=== PATIENT | male | born 1955 | race Caucasian/White ===

== ENCOUNTER 2020-07-01 16:09 | Inpatient (IN) | payer MEDICARE, BC ==
[~2020-07-01] VITALS: Ht 177.8 cm; Wt 101.9 kg
[2020-07-01] MEDS ORDERED: KLONOPIN1 MG PO (16:30)
[2020-07-01] MEDS ORDERED: FOLIC ACID1 MG PO (16:30)
[2020-07-01] MEDS ORDERED: XELJANZ5 MG PO (16:30)
[2020-07-01] MEDS ORDERED: TREXALL5 MG PO (16:31)
[2020-07-01] MEDS ORDERED: AMBIEN10 MG PO (16:31)
[2020-07-01] MEDS ORDERED: MELATONIN 3 MG1 TAB PO (16:31)
[2020-07-01] MEDS ORDERED: NEURONTIN 300300 MG PO (16:31)
[2020-07-01] MEDS ORDERED: FLOMAX0.4 MG PO (16:33)
[2020-07-01] MEDS ORDERED: ASPIRIN81 MG PO (16:33)
[2020-07-01 17:29] LABS: BASOPHILS 0.1 % (0-2); EOSINOPHILS 0 % (0-7); HEMATOCRIT 43.7 % (42.0-54.0); HEMOGLOBIN 14.6 g/dL (13.5-17.5); IMMATURE GRANULOCYTES 0.5 % (0-5); LYMPHOCYTES 4.1 % (15-50); MCH 31.6 pg (26.0-34.0); MCHC 33.4 g/dL (31.0-37.0); MCV 94.6 fL (80.0-100.0); MONOCYTES 10.6 % (2-11); NEUTROPHILS 84.7 % (40-80); PLATELET COUNT 169 10x3/uL (130-400); RBC 4.62 10x6/uL (4.20-6.10); RDW 14.1 % (11.5-14.5); WBC 12.2 10x3/uL (4.8-10.8)
[2020-07-01 18:12] LABS: ALBUMIN 3.3 g/dL (3.4-5.0); ANION GAP 11.1 mmol/L (8-16); BILIRUBIN - TOTAL 1.58 mg/dL (0.2-1.3); CALCIUM 8.6 mg/dL (8.5-10.1); CREATININE - SERUM 1.7 mg/dL (0.6-1.3); POTASSIUM - SERUM 4.1 mmol/L (3.5-5.1); PROTEIN - SERUM 6.8 g/dL (6.4-8.2)
--- NOTE | 2020-07-01 18:25 | NUR ---
PT TO MRI PRIOR TO GOING TO THE FLOOR. CALL TO FLOOR TO LET ABRIL GERMAN KNOW.
[2020-07-01 18:29] LABS: C-REACTIVE PROTEIN 27.3 mg/dL (0.0-0.9)
[2020-07-01 18:45] LABS: ERYTHROCYTE SEDIMENTATION RATE 28 mm/hr (0-20)
[2020-07-01 20:16] VITALS: BP 101/63
[2020-07-02 04:00] VITALS: BP 92/56
[2020-07-02 06:21] LABS: BASOPHILS 0.1 % (0-2); EOSINOPHILS 0 % (0-7); HEMOGLOBIN 13.1 g/dL (13.5-17.5); IMMATURE GRANULOCYTES 0.2 % (0-5); LYMPHOCYTES 4.9 % (15-50); MCHC 33.6 g/dL (31.0-37.0); MCV 95.1 fL (80.0-100.0); MEAN PLATELET VOLUME 10.4 fL (7.4-10.4); MONOCYTES 10.9 % (2-11); NEUTROPHILS 83.9 % (40-80); PLATELET COUNT 159 10x3/uL (130-400); RDW 14.3 % (11.5-14.5); WBC 12.9 10x3/uL (4.8-10.8)
[2020-07-02 06:50] LABS: ALBUMIN 2.7 g/dL (3.4-5.0); ANION GAP 15.2 mmol/L (8-16); BILIRUBIN - TOTAL 1.38 mg/dL (0.2-1.3); CALCIUM 7.5 mg/dL (8.5-10.1); CARBON DIOXIDE 23.4 mmol/L (21.0-32.0); CREATININE - SERUM 1.7 mg/dL (0.6-1.3); POTASSIUM - SERUM 3.6 mmol/L (3.5-5.1); PROTEIN - SERUM 5.2 g/dL (6.4-8.2); VANCOMYCIN - RANDOM 7.5 ug/mL (10.0-20.0)
--- NOTE | 2020-07-02 07:45 | OP ---
PATIENT NAME: DON ALMARAZ MEDICAL RECORD: [id number] :59 LOCATION:[id number] ADMISSION DATE:07/01/20 SURGEON: CORA RODAS DO DATE OF OPERATION: 07/01/2020 PROCEDURE PERFORMED: Right knee aspiration. PREOPERATIVE DIAGNOSIS: Right knee infection. POSTOPERATIVE DIAGNOSIS: Right knee infection. INDICATIONS: Mr. Don Almaraz is a 64-year-old male who has had right knee pain and swelling for the last 4 days, it has gotten worse. She had a fever of 102 today. She is unable to bear weight on it and it was painful to move. I saw him in the ER and it was quite swollen. I told him that we need to aspirate it and given a white count of 12, I needed to aspirate to ensure there is no infection and then sent it for culture, did that and he was okay with that. I then prepped him by using Betadine in the lateral aspect of the knee inserted an 18-gauge needle in the knee and aspirated approximately 2.5 to 3 mL of straw-colored fluid, a gram recovered of fluid. It was not frankly purulent from the knee joint, but it was a joint fluid and then removed the needle and placed a Band-Aid over that site and sent the fluid for culture. He tolerated the procedure well. He will be admitted and started on IV antibiotics. We will keep a close eye on that. If they do become positive, we will plan I&D with the scope. TRANSINT:[id number] Voice Confirmation ID: [id number] DOCUMENT ID: [id number] CORA RODAS DO at 0745 CC: [id number] DICTATION DATE: 07/01/20 1759 FORM BUILDING SUPERVISOR: 07/01/202205 ADM IN [facility] [address] [place] [address]
[2020-07-02 08:37] VITALS: BP 89/60
[2020-07-02 12:00] VITALS: BP 104/62
[2020-07-02 14:09] VITALS: Ht 177.8 cm; Wt 101.9 kg
[2020-07-02 16:00] VITALS: BP 94/50
[2020-07-02 17:12] VITALS: BP 126/62
[2020-07-02 20:55] VITALS: BP 81/41
[2020-07-03 01:48] VITALS: BP 99/58
--- NOTE | 2020-07-03 02:56 | NUR ---
I have reviewed this patient and I concur with the Shift Assessment completed by the Licensed Practical Nurse today this shift.
[2020-07-03 04:30] VITALS: BP 98/60
[2020-07-03 06:30] LABS: BASOPHILS 0.1 % (0-2); EOSINOPHILS 0.3 % (0-7); HEMATOCRIT 36.8 % (42.0-54.0); HEMOGLOBIN 11.9 g/dL (13.5-17.5); IMMATURE GRANULOCYTES 0.3 % (0-5); LYMPHOCYTES 5.9 % (15-50); MCH 30.9 pg (26.0-34.0); MCHC 32.3 g/dL (31.0-37.0); MCV 95.6 fL (80.0-100.0); MEAN PLATELET VOLUME 10.6 fL (7.4-10.4); MONOCYTES 9.8 % (2-11); NEUTROPHILS 83.6 % (40-80); PLATELET COUNT 158 10x3/uL (130-400); RBC 3.85 10x6/uL (4.20-6.10); RDW 14.4 % (11.5-14.5); WBC 11.8 10x3/uL (4.8-10.8)
--- NOTE | 2020-07-03 07:34 | NUR ---
ALERT AND ORIENTED. LUNGS CLEAR BILATERALLY. HEART SOUNDS S1 AND S2 HEARD IN ALL SANTANA. BOWEL SOUNDS ACTIVE X 4. IV TO LEFT AC PATENT WITHOUT REDNESS. DENIES NEEDS. BED LOW. CALL BARRETT AND PERSONAL ITEMS IN REACH. WILL CONTINUE TO MONITOR.
[2020-07-03 07:54] LABS: ALBUMIN 2.2 g/dL (3.4-5.0); ANION GAP 13.4 mmol/L (8-16); BILIRUBIN - TOTAL 0.91 mg/dL (0.2-1.3); CARBON DIOXIDE 22.5 mmol/L (21.0-32.0); CREATININE - SERUM 1.6 mg/dL (0.6-1.3); POTASSIUM - SERUM 3.9 mmol/L (3.5-5.1); PROTEIN - SERUM 4.9 g/dL (6.4-8.2)
[2020-07-03 08:00] VITALS: BP 106/67
--- NOTE | 2020-07-03 11:29 | NUR ---
HANNAH Kalyani OFFERED PATIENT A BATH AND TO HELP WITH ORAL CARE AND OTHER ADLS AT THIS TIME. PATIENT REFUSED AND STATED HE WAS WAITING FOR HIS TO GET HERE. CALL LIGHT WITHIN REACH.
[2020-07-03 12:00] VITALS: BP 96/61
[2020-07-03 13:40] LABS: BILIRUBIN NEGATIVE (NEGATIVE); KETONE NEGATIVE (NEGATIVE); NITRITE NEGATIVE (NEGATIVE); UROBILINOGEN NORMAL (NORMAL)
[2020-07-03 16:00] VITALS: BP 98/63
--- NOTE | 2020-07-03 16:51 | NUR ---
PATIENT REQUESTING PO PAIN MEDICATION INSTEAD OF MORPHINE IV. CLINICAL INFORMATICS SPEC PAGED.
[2020-07-03 20:00] VITALS: BP 94/58
--- NOTE | 2020-07-04 01:45 | NUR ---
I have reviewed this patient and I concur with the Shift Assessment completed by the Licensed Practical Nurse today this shift.
[2020-07-04 04:00] VITALS: BP 100/65
[2020-07-04 06:13] LABS: BASOPHILS 0.2 % (0-2); EOSINOPHILS 1.2 % (0-7); HEMATOCRIT 35.6 % (42.0-54.0); HEMOGLOBIN 11.6 g/dL (13.5-17.5); IMMATURE GRANULOCYTES 0.4 % (0-5); LYMPHOCYTES 7.6 % (15-50); MCH 30.9 pg (26.0-34.0); MCHC 32.6 g/dL (31.0-37.0); MCV 94.7 fL (80.0-100.0); MEAN PLATELET VOLUME 10.3 fL (7.4-10.4); MONOCYTES 8.8 % (2-11); NEUTROPHILS 81.8 % (40-80); PLATELET COUNT 188 10x3/uL (130-400); RBC 3.76 10x6/uL (4.20-6.10); RDW 14.3 % (11.5-14.5); WBC 9.6 10x3/uL (4.8-10.8)
[2020-07-04 06:32] LABS: ALBUMIN 1.9 g/dL (3.4-5.0); ANION GAP 10.3 mmol/L (8-16); BILIRUBIN - TOTAL 0.71 mg/dL (0.2-1.3); CALCIUM 7.4 mg/dL (8.5-10.1); CARBON DIOXIDE 26.2 mmol/L (21.0-32.0); CREATININE - SERUM 1.3 mg/dL (0.6-1.3); POTASSIUM - SERUM 3.5 mmol/L (3.5-5.1); PROTEIN - SERUM 5.6 g/dL (6.4-8.2)
[2020-07-04 08:46] VITALS: BP 120/75
--- NOTE | 2020-07-04 09:10 | NUR ---
RESTING IN BED, NO DISTRESS NOTED, IV INFUSING, CONT TO MONITOR PAIN AND LEG EDEMA
[2020-07-04 12:17] VITALS: BP 107/67
[2020-07-04 16:53] VITALS: BP 114/74
[2020-07-04 20:00] VITALS: BP 84/54
[2020-07-05 04:00] VITALS: BP 119/80
--- NOTE | 2020-07-05 05:21 | NUR ---
I have reviewed this patient and I concur with the Shift Assessment completed by the Licensed Practical Nurse today this shift.
[2020-07-05 07:05] LABS: BASOPHILS 0.2 % (0-2); EOSINOPHILS 1.9 % (0-7); HEMATOCRIT 34.6 % (42.0-54.0); HEMOGLOBIN 11.5 g/dL (13.5-17.5); IMMATURE GRANULOCYTES 0.8 % (0-5); LYMPHOCYTES 7.1 % (15-50); MCH 31.4 pg (26.0-34.0); MCHC 33.2 g/dL (31.0-37.0); MCV 94.5 fL (80.0-100.0); MEAN PLATELET VOLUME 9.8 fL (7.4-10.4); MONOCYTES 11.2 % (2-11); NEUTROPHILS 78.8 % (40-80); PLATELET COUNT 215 10x3/uL (130-400); RBC 3.66 10x6/uL (4.20-6.10); RDW 14.2 % (11.5-14.5)
[2020-07-05 07:07] LABS: ALBUMIN 2.2 g/dL (3.4-5.0); ANION GAP 12.1 mmol/L (8-16); BILIRUBIN - TOTAL 0.86 mg/dL (0.2-1.3); CALCIUM 8.3 mg/dL (8.5-10.1); CARBON DIOXIDE 25.3 mmol/L (21.0-32.0); CREATININE - SERUM 1.5 mg/dL (0.6-1.3); POTASSIUM - SERUM 3.4 mmol/L (3.5-5.1); PROTEIN - SERUM 6.2 g/dL (6.4-8.2)
--- NOTE | 2020-07-05 09:39 | NUR ---
HIS RIGHT KNEE IS SWOLLEN AND IS RED. HIS RIGHT LEG IS ELEVATED ON A PILLOW. THE CALL LIGHT IS WITHIN REACH.
[2020-07-05 09:48] VITALS: BP 96/72
--- NOTE | 2020-07-05 12:02 | NUR ---
NEW IV STARTED TO THE UPPER RIGHT ARM. THE CALL LIGHT IS WITHIN REACH. HIS IS AT THE BEDSIDE.
--- NOTE | 2020-07-05 12:31 | NUR ---
Nutrition follow-up: Pt receiving a regular diet with po intake 100% of meals Labs reviewed Wt: 224# RDN following.
[2020-07-05 12:58] VITALS: BP 102/61
[2020-07-05 17:23] VITALS: BP 95/55
[2020-07-05 20:00] VITALS: BP 102/56
[2020-07-06] VITALS: BP 94/45
[2020-07-06 04:00] VITALS: BP 112/65
[2020-07-06 04:42] LABS: BASOPHILS 0.4 % (0-2); HEMATOCRIT 33.9 % (42.0-54.0); HEMOGLOBIN 11.1 g/dL (13.5-17.5); IMMATURE GRANULOCYTES 2.6 % (0-5); LYMPHOCYTES 10.9 % (15-50); MCH 31.1 pg (26.0-34.0); MCHC 32.7 g/dL (31.0-37.0); MEAN PLATELET VOLUME 9.6 fL (7.4-10.4); MONOCYTES 11.3 % (2-11); NEUTROPHILS 72.8 % (40-80); PLATELET COUNT 221 10x3/uL (130-400); RBC 3.57 10x6/uL (4.20-6.10); RDW 14.4 % (11.5-14.5); WBC 7.6 10x3/uL (4.8-10.8)
[2020-07-06 05:10] LABS: ANION GAP 10.6 mmol/L (8-16); BILIRUBIN - TOTAL 0.5 mg/dL (0.2-1.3); CALCIUM 7.9 mg/dL (8.5-10.1); CARBON DIOXIDE 27.8 mmol/L (21.0-32.0); CREATININE - SERUM 1.6 mg/dL (0.6-1.3); POTASSIUM - SERUM 3.4 mmol/L (3.5-5.1); PROTEIN - SERUM 5.5 g/dL (6.4-8.2)
--- NOTE | 2020-07-06 07:42 | NUR ---
RECEIVED PT FROM WELL SITE DRILLING ENGINEER. RESTING COMFORTABLY IN BED UPON ENTERING. DENIES ANY NEEDS. BED IN LOWEST POSITION, BED RAILS X2, CALL LIGHT WITHIN REACH. WILL CONTINUE TO MONITOR.
--- NOTE | 2020-07-06 09:15 | NUR ---
PT ALERT AND ORIENTED X4 UPON ENTERING. ADMINISTERED MEDICATION AT THIS TIME. NO DIFFICULTIES. RESTING COMFORTABLY IN BED. DENIES ANY NEEDS. WILL CONTINUE TO MONITOR.
[2020-07-06 09:17] VITALS: BP 129/70
--- NOTE | 2020-07-06 12:24 | NUR ---
HUNG IV ABX, TOLERATING WELL. PRN PERCOCET FOR 10/10 PAIN IN RIGHT KNEE/LOWER LEG. RESTING COMFORTABLY, FAMILY AT BEDSIDE. DENIES ANY NEEDS. WILL CONTINUE TO MONITOR.
[2020-07-06 12:53] VITALS: BP 125/67
--- NOTE | 2020-07-06 15:19 | NUR ---
I have reviewed this patient and I concur with the Shift Assessment completed by the Licensed Practical Nurse today this shift.
--- NOTE | 2020-07-06 16:36 | NUR ---
ADMINSTERED MEDICATION AND HUNG IV ABX. RESTING COMFORTABLY IN BED. DENIES ANY NEEDS. WILL CONTINUE TO MONITOR.
[2020-07-06 17:11] VITALS: BP 94/60
--- NOTE | 2020-07-06 18:53 | NUR ---
ADMINISTERED PRN PERCOCET FOR PAIN 10/10 IN RIGHT KNEE/LOWER LEG. RESTING COMFORTABLY OTHERWISE. DENIES ANY NEEDS. WILL CONTINUE TO MONITOR.
--- NOTE | 2020-07-06 21:30 | NUR ---
PT C/O RIGHT LEG PAIN EXCRUCIATING 08/25. CALLED COLETTE OLIVA. RECEIVED ORDER CHANGING TO FROM PERCOCET-5 1 TAB Q4HP TO PERCOCET-10 1 TAB Q6HP. GAVE PT 1 TAB PERCOCET-10 NOW ORDERED AND OTHER SCHEDULED MEDS. NO OTHER NEEDS. WILL REASSESS AND CONTINUE TO MONITOR.
[2020-07-07 04:00] VITALS: BP 120/73
[2020-07-07 06:18] LABS: BASOPHILS 0.4 % (0-2); EOSINOPHILS 2.4 % (0-7); HEMATOCRIT 36.4 % (42.0-54.0); HEMOGLOBIN 11.9 g/dL (13.5-17.5); IMMATURE GRANULOCYTES 4.9 % (0-5); LYMPHOCYTES 10.1 % (15-50); MCH 31.3 pg (26.0-34.0); MCHC 32.7 g/dL (31.0-37.0); MCV 95.8 fL (80.0-100.0); MEAN PLATELET VOLUME 9.8 fL (7.4-10.4); MONOCYTES 14.2 % (2-11); PLATELET COUNT 255 10x3/uL (130-400); RDW 14.8 % (11.5-14.5); WBC 7.2 10x3/uL (4.8-10.8)
[2020-07-07 09:30] VITALS: BP 131/83
[2020-07-07 09:59] LABS: ALBUMIN 2.3 g/dL (3.4-5.0); BILIRUBIN - TOTAL 0.51 mg/dL (0.2-1.3); CALCIUM 7.9 mg/dL (8.5-10.1); CREATININE - SERUM 1.4 mg/dL (0.6-1.3); PROTEIN - SERUM 5.2 g/dL (6.4-8.2)
[2020-07-07 10:00] LABS: ANION GAP 14.1 mmol/L (8-16); POTASSIUM - SERUM 4.1 mmol/L (3.5-5.1)
[2020-07-07 13:23] VITALS: BP 106/51
[2020-07-07 16:23] VITALS: BP 124/89
[2020-07-07 20:00] VITALS: BP 127/64
[2020-07-08 04:30] VITALS: BP 111/65
[2020-07-08 06:16] LABS: BASOPHILS 0.5 % (0-2); EOSINOPHILS 2.6 % (0-7); HEMATOCRIT 37.6 % (42.0-54.0); HEMOGLOBIN 12.2 g/dL (13.5-17.5); IMMATURE GRANULOCYTES 4.6 % (0-5); LYMPHOCYTES 11.8 % (15-50); MCHC 32.4 g/dL (31.0-37.0); MCV 95.4 fL (80.0-100.0); MEAN PLATELET VOLUME 9.6 fL (7.4-10.4); MONOCYTES 8.9 % (2-11); NEUTROPHILS 71.6 % (40-80); PLATELET COUNT 289 10x3/uL (130-400); RBC 3.94 10x6/uL (4.20-6.10); RDW 14.6 % (11.5-14.5); WBC 7.4 10x3/uL (4.8-10.8)
[2020-07-08 06:39] LABS: ALBUMIN 2.3 g/dL (3.4-5.0); ANION GAP 9.7 mmol/L (8-16); BILIRUBIN - TOTAL 0.5 mg/dL (0.2-1.3); CARBON DIOXIDE 27.7 mmol/L (21.0-32.0); CREATININE - SERUM 1.4 mg/dL (0.6-1.3); POTASSIUM - SERUM 4.4 mmol/L (3.5-5.1); PROTEIN - SERUM 5.4 g/dL (6.4-8.2)
[2020-07-08 09:49] VITALS: BP 106/65
--- NOTE | 2020-07-08 11:38 | NUR ---
PT ALERT X 4. BREATH SOUNDS DIMINISHED TO RIGHT LOWER LOBE. IV TO RIGHT UPPER ARM, PATENT, DRESSING CDI. RAS TO RIGHT KNEE CDI. PT REPORTING PAIN OF 2/10, WILL CONTINUE TO MONITOR. AT BEDSIDE. BED LOW, CALL LIGHT IN REACH. NO OTHER NEEDS AT THIS TIME.
[2020-07-08 12:15] VITALS: BP 110/66
[2020-07-08 17:21] VITALS: BP 117/69
[2020-07-08 20:00] VITALS: BP 117/71
[2020-07-09 00:05] VITALS: BP 117/71
[2020-07-09 04:30] VITALS: BP 124/73
[2020-07-09 05:16] LABS: BASOPHILS 0.2 % (0-2); EOSINOPHILS 1.7 % (0-7); HEMATOCRIT 40.8 % (42.0-54.0); IMMATURE GRANULOCYTES 4.6 % (0-5); LYMPHOCYTES 9.5 % (15-50); MCH 30.8 pg (26.0-34.0); MCHC 31.9 g/dL (31.0-37.0); MCV 96.7 fL (80.0-100.0); MEAN PLATELET VOLUME 9.7 fL (7.4-10.4); MONOCYTES 6.9 % (2-11); NEUTROPHILS 77.1 % (40-80); RBC 4.22 10x6/uL (4.20-6.10); RDW 14.5 % (11.5-14.5); WBC 8.2 10x3/uL (4.8-10.8)
[2020-07-09 05:28] LABS: PLATELET COUNT 363 10x3/uL (130-400)
[2020-07-09 05:57] LABS: ALBUMIN 2.5 g/dL (3.4-5.0); BILIRUBIN - TOTAL 0.57 mg/dL (0.2-1.3); CALCIUM 8.6 mg/dL (8.5-10.1); CARBON DIOXIDE 26.6 mmol/L (21.0-32.0); CREATININE - SERUM 1.5 mg/dL (0.6-1.3); VANCOMYCIN - RANDOM 26.4 ug/mL (10.0-20.0)
[2020-07-09 05:59] LABS: POTASSIUM - SERUM 3.6 mmol/L (3.5-5.1)
--- NOTE | 2020-07-09 08:12 | NUR ---
AWAKE AND ALERT. ORIENTED X3. NO C/O AT THIS TIME. LUNGS ARE CLEAR BILATERALLY, NO COUGH NOTED. SKIN IS INTACT WITHOUT REDNESS EXCEPT REDNESS AND WARMTH TO RIGHT KNEE AREA. PATIENT REPORTS THIS IS IMPROVED. IV TO RIGHT UPPER ARM IS PATENT WITHOUT REDNESS AT INSERTION SITE. DENIES NEEDS.
[2020-07-09 08:44] VITALS: BP 117/70
--- NOTE | 2020-07-09 10:00 | NUR ---
UP TO BR PER SELF. REPORTED GOOD STOOL. REFUSED MIRALAX AT THIS TIME.
[2020-07-09] MEDS ORDERED: Zosyn 3.375 GM/D5W 5 IV (10:16)
[2020-07-09] MEDS ORDERED: VANCOMYCIN 1 GM/1 G1 IV (10:18)
--- NOTE | 2020-07-09 12:57 | NUR ---
LUNCH SERVED IN ROOM. ANXIOUS TO GO HOME.
[2020-07-09 13:30] VITALS: BP 113/70
--- NOTE | 2020-07-09 15:34 | MORECARE ---
CASE MANAGEMENT DISCHARGE SUMMARY PATIENT: CONSTANTIN HARTMAN UNIT: [id number] ADM DATE: 07/01/20 AGE: 64 : 59 SEX: M ROOM/BED: D.2203 AUTHOR: DAVY HERRING PHYSICIAN: REFERRING PHYSICIAN: ROXANNE JIM DO DATE OF SERVICE: 07/09/20 Discharge Plan Patient Name: CONSTANTIN HARTMAN Facility: [facility]:[place] : 1955 Planned Disposition: Home with Infusion Therapy Services Anticipated Discharge Date: Discharge Date: Expected LOS: Initial Reviewer: [id number] Initial Review Date: 07/01/2020 Generated: 07/09/20 4:33 pm Comments DCP- Discharge Planning Updated by [email or web address]: Sweta Mina on 07/09/20 2:[address] Patient Name: CONSTANTIN HARTMAN Admission Status: ER Accout number: [id number] Admission Date: 07-01-2020 : 1955 Admission Diagnosis:PAIN IN RIGHT KNEE Attending: ROXANNE JIM Current LOS: 8 Anticipated DC Date: Planned Disposition: Home with Infusion Therapy Services Primary Insurance: MEDICARE A & B Discharge Planning Comments: I HAVE BEEN WORKING ON IV ABX. MARCO SOTO WILL SUPPLY HER IV ABX. HE HAS NO COVERAGE OUT OF STATE FROM [facility]. HIS OUT OF POCKET EXPENSE IS 1000.85 FOR DRUGS AND SUPPLIES. THE FAMILY IS OK WITH THIS AND WILL BE PAYING FOR THIS. HE WILL HAVE CARE IV HOME HEALTH HE WILL BE GOING TO [address] [place] [address] IN [place]. HIS IS AT BEDSIDE AND EILL BE DRIVEING HIM HOME. MARCO SOTO WILL TEACHA ND DELIVER TO THE HOSPITAL TODAY AND THEY WILL DISCHARGE HOME TO THEIR FRIENDS HOME WHILE HE RECOVERS IMM SERVED AND EXPLAINED AND MARIA ALSO SIGNED. I HAVE GIVEN THEM MY CARD IF THERE ARE ANY PROBLEMS CM TO FOLLOW AND ASSIST NEEDED Dialysis Clinical Manager: Sweta Mina DCPIA - Discharge Planning Initial Assessment Updated by [id number]: Sweta Mina on 07/09/20 3:28 pm * Is the patient Alert and Oriented? Yes External Providers External Provider: [facility] Next Contact Date: Service Request Date: Service Type: Resolution: Reviewer: Comments: External Provider: [facility] Next Contact Date: Service Request Date: Service Type: Resolution: Reviewer: Comments: Coverage Notice Reviewer: [email or web address] Mina Notice Issued Date-Time: 07/09/2020 15:32 Notice Type: IM Discharge Notice Notice Delivered To: Patient Relationship to Patient: Carbon Furnace Operator Helper Name: Delivery Method: HAND - Hand Delivered Rima Days: Prior Verbal Notification: Recipient Understood Notice: Yes Recipient Signature: Yes Med Rec Note Co-signed by Attending: Coverage Notice Comment: Reviewer: [id number] Mina Notice Issued Date-Time: 07/09/2020 15:32 Notice Type: Patient Choice Letter Notice Delivered To: Patient Relationship to Patient: Carbon Furnace Operator Helper Name: Delivery Method: HAND - Hand Delivered Rima Days: Prior Verbal Notification: Recipient Understood Notice: Yes Recipient Signature: Yes Med Rec Note Co-signed by Attending: Coverage Notice Comment: Patient Name: CONSTANTIN HARTMAN Page [phone] at 1534 All edits/amendments must be made on the electronic document DICTATION DATE: 07/09/20 1533 SECURITY AND COMPLIANCE PROJECT MANAGER: ZAINAB 07/09/20 1533 RPT#: [id number] DC DATE: STATUS: ADM IN [facility] [address] [place] [address] END OF REPORT
--- NOTE | 2020-07-09 15:43 | MORECARE ---
CASE MANAGEMENT DISCHARGE SUMMARY PATIENT: CONSTANTIN HARTMAN UNIT: [id number] ADM DATE: 07/01/20 AGE: 64 : 59 SEX: M ROOM/BED: D.2203 AUTHOR: DAVY HERRING PHYSICIAN: REFERRING PHYSICIAN: ROXANNE JIM DO DATE OF SERVICE: 07/09/20 Discharge Plan Patient Name: CONSTANTIN HARTMAN Facility: [facility]:[place] : 1955 Planned Disposition: Home with Infusion Therapy Services Anticipated Discharge Date: Discharge Date: Expected LOS: Initial Reviewer: [id number] Initial Review Date: 07/01/2020 Generated: 07/09/20 4:42 pm Comments DCP- Discharge Planning Updated by [email or web address]: Sweta Mina on 07/09/20 2:[address] Patient Name: CONSTANTIN HARTMAN Admission Status: ER Accout number: [id number] Admission Date: 07-01-2020 : 1955 Admission Diagnosis:PAIN IN RIGHT KNEE Attending: ROXANNE JIM Current LOS: 8 Anticipated DC Date: Planned Disposition: Home with Infusion Therapy Services Primary Insurance: MEDICARE A & B Discharge Planning Comments: I HAVE BEEN WORKING ON IV ABX. MARCO SOTO WILL SUPPLY HER IV ABX. HE HAS NO COVERAGE OUT OF STATE FROM [facility]. HIS OUT OF POCKET EXPENSE IS 1000.85 FOR DRUGS AND SUPPLIES. THE FAMILY IS OK WITH THIS AND WILL BE PAYING FOR THIS. HE WILL HAVE CARE IV HOME HEALTH HE WILL BE GOING TO [address] [place] [address] IN [place]. HIS IS AT BEDSIDE AND EILL BE DRIVEING HIM HOME. MARCO SOTO WILL TEACHA ND DELIVER TO THE HOSPITAL TODAY AND THEY WILL DISCHARGE HOME TO THEIR FRIENDS HOME WHILE HE RECOVERS IMM SERVED AND EXPLAINED AND MARIA ALSO SIGNED. I HAVE GIVEN THEM MY CARD IF THERE ARE ANY PROBLEMS CM TO FOLLOW AND ASSIST NEEDED Traffic Worker: Sweta Mina DCPIA - Discharge Planning Initial Assessment Updated by [id number]: Sweta Mina on 07/09/20 3:28 pm * Is the patient Alert and Oriented? Yes External Providers [facility] Next Contact Date: Service Request Date: Service Type: Resolution: Reviewer: Comments: Coverage Notice Reviewer: [id number] Jillian Mina Notice Issued Date-Time: 07/09/2020 15:32 Notice Type: IM Discharge Notice Notice Delivered To: Patient Relationship to Patient: Kiln Furniture Caster Name: Delivery Method: HAND - Hand Delivered Rima Days: Prior Verbal Notification: Recipient Understood Notice: Yes Recipient Signature: Yes Med Rec Note Co-signed by Attending: Coverage Notice Comment: Reviewer: [id number] Jillian Mina Notice Issued Date-Time: 07/09/2020 15:32 Notice Type: Patient Choice Letter Notice Delivered To: Patient Relationship to Patient: Kiln Furniture Caster Name: Delivery Method: HAND - Hand Delivered Rima Days: Prior Verbal Notification: Recipient Understood Notice: Yes Recipient Signature: Yes Med Rec Note Co-signed by Attending: Coverage Notice Comment: Last DP export: 07/09/20 2:34 p Patient Name: CONSTANTIN HARTMAN Page [id number] at 1543 All edits/amendments must be made on the electronic document DICTATION DATE: 07/09/20 1543 RN CLINICAL: ZAINAB 07/09/20 1543 RPT#: [id number] DC DATE: STATUS: ADM IN [facility] [address] [place] [address] END OF REPORT
--- NOTE | 2020-07-09 16:45 | NUR ---
DISCHARGED TO HOME AMBULATORY WITH . DISCHARGE INSTRUCTIONS GIVEN BOTH VERBALLY AND WRITTEN. ALL QUESTIONS ANSWERED. PATIENT AND VERBALIZED UNDERSTANDING OF MEDICATION INSTRUCTIONS FROM BARRY. SL TO RIGHT UPPER ARM D/C WITH CATHETER INTACT. ALL BELONGINGS WITH PATIENT. NO NEW MEDS NEEDED.
--- NOTE | 2020-07-10 07:25 | MORECARE ---
CASE MANAGEMENT DISCHARGE SUMMARY PATIENT: CONSTANTIN HARTMAN UNIT: [id number] ADM DATE: 07/01/20 AGE: 64 : 59 SEX: M ROOM/BED: D.2203 AUTHOR: NIMA,DOC PHYSICIAN: REFERRING PHYSICIAN: ROXANNE JIM DO DATE OF SERVICE: 07/10/20 Discharge Plan Patient Name: CONSTANTIN HARTMAN Facility: [facility]:[place] : 1955 Planned Disposition: Home with Infusion Therapy Services Anticipated Discharge Date: Discharge Date: 07/09/2020 Expected LOS: Initial Reviewer: [id number] Initial Review Date: 07/01/2020 Generated: 07/10/20 8:24 am Comments DCP- Discharge Planning Updated by [email or web address]: Sweta Mina on 07/10/20 6:[address] late entry 07/09/20 @ 1555- care iv called and stated that their insurance is flagged and Medicare is not their primary The family states that Medicare is their Primary and they have it wrong. Care IV can not accept until they can get auth from [employer]. I have explained this to the family and they are not worried about home health, they just would like to get the IV abx and get out of here. I have sent the referral to [facility] for them to work on this and gave the family my card and will touch base with them Tuesday 07/10 DCP- Discharge Planning Updated by [id number]: Sweta Mina on 07/09/20 2:[address] Patient Name: CONSTANTIN HARTMAN Admission Status: ER Accout number: [id number] Admission Date: 07-01-2020 : 1955 Admission Diagnosis:PAIN IN RIGHT KNEE Attending: ROXANNE JIM Current LOS: 8 Anticipated DC Date: Planned Disposition: Home with Infusion Therapy Services Primary Insurance: MEDICARE A & B Discharge Planning Comments: I HAVE BEEN WORKING ON IV ABX. MARCO SOTO WILL SUPPLY HER IV ABX. HE HAS NO COVERAGE OUT OF STATE FROM [employer] HIS OUT OF POCKET EXPENSE IS 1000.85 FOR DRUGS AND SUPPLIES. THE FAMILY IS OK WITH THIS AND WILL BE PAYING FOR THIS. HE WILL HAVE CARE IV HOME HEALTH HE WILL BE GOING TO [address] [place] [address] IN [place]. HIS IS AT BEDSIDE AND EILL BE DRIVEING HIM HOME. MARCO SOTO WILL TEACHA ND DELIVER TO THE HOSPITAL TODAY AND THEY WILL DISCHARGE HOME TO THEIR FRIENDS HOME WHILE HE RECOVERS IMM SERVED AND EXPLAINED AND MARIA ALSO SIGNED. I HAVE GIVEN THEM MY CARD IF THERE ARE ANY PROBLEMS CM TO FOLLOW AND ASSIST NEEDED Disk Operator: Sweta Mina DCPIA - Discharge Planning Initial Assessment Updated by [id number]: Sweta Mian on 07/09/20 3:28 pm * Is the patient Alert and Oriented? Yes Coverage Notice Reviewer: [id number] Mina Notice Issued Date-Time: 07/09/2020 15:32 Notice Type: IM Discharge Notice Notice Delivered To: Patient Relationship to Patient: Engineering Drawings Checker Name: Delivery Method: HAND - Hand Delivered Rima Days: Prior Verbal Notification: Recipient Understood Notice: Yes Recipient Signature: Yes Med Rec Note Co-signed by Attending: Coverage Notice Comment: Reviewer: [id number] Mina Notice Issued Date-Time: 07/09/2020 15:32 Notice Type: Patient Choice Letter Notice Delivered To: Patient Relationship to Patient: Engineering Drawings Checker Name: Delivery Method: HAND - Hand Delivered Rima Days: Prior Verbal Notification: Recipient Understood Notice: Yes Recipient Signature: Yes Med Rec Note Co-signed by Attending: Coverage Notice Comment: Last DP export: 07/09/20 2:43 p Patient Name: CONSTANTIN HARTMAN Page [phone] at 0725 All edits/amendments must be made on the electronic document DICTATION DATE: 07/10/20723 AFTER SCHOOL PROGRAM COORDINATOR: ZAINAB 07/10/20723 RPT#: [id number] DC DATE:07/09/20 STATUS: DIS IN [facility] [address] [place] [address] END OF REPORT
--- NOTE | 2020-07-10 08:45 | MORECARE ---
CASE MANAGEMENT DISCHARGE SUMMARY PATIENT: CONSTANTIN HARTMAN UNIT: [id number] ADM DATE: 07/01/20 AGE: 64 : 59 SEX: M ROOM/BED: D.2203 AUTHOR: NIMA,DOC PHYSICIAN: REFERRING PHYSICIAN: ROXANNE JIM DO DATE OF SERVICE: 07/10/20 Discharge Plan Patient Name: CONSTANTIN HARTMAN Facility: [facility]:[place] : 1955 Planned Disposition: Home with Infusion Therapy Services Anticipated Discharge Date: Discharge Date: 07/09/2020 Expected LOS: Initial Reviewer: [email or web address] Initial Review Date: 07/01/2020 Generated: 07/10/20 9:44 am Comments DCP- Discharge Planning Updated by [email or web address]: Sweta Mina on 07/10/20 6:[address] late entry 07/09/20 @ 1555- care iv called and stated that their insurance is flagged and Medicare is not their primary The family states that Medicare is their Primary and they have it wrong. Care IV can not accept until they can get auth from [employer]. I have explained this to the family and they are not worried about home health, they just would like to get the IV abx and get out of here. I have sent the referral to [facility] for them to work on this and gave the family my card and will touch base with them Tuesday 07/10 DCP- Discharge Planning Updated by [email or web address]: Sweta Mina on 07/09/20 2:[address] Patient Name: CONSTANTIN HARTMAN Admission Status: ER Accout number: [id number] Admission Date: 07-01-2020 : 1955 Admission Diagnosis:PAIN IN RIGHT KNEE Attending: ROXANNE JIM Current LOS: 8 Anticipated DC Date: Planned Disposition: Home with Infusion Therapy Services Primary Insurance: MEDICARE A & B Discharge Planning Comments: I HAVE BEEN WORKING ON IV ABX. MARCO SOTO WILL SUPPLY HER IV ABX. HE HAS NO COVERAGE OUT OF STATE FROM [employer]. HIS OUT OF POCKET EXPENSE IS 1000.85 FOR DRUGS AND SUPPLIES. THE FAMILY IS OK WITH THIS AND WILL BE PAYING FOR THIS. HE WILL HAVE CARE IV HOME HEALTH HE WILL BE GOING TO [address] [place] [address] IN [place]. HIS IS AT BEDSIDE AND EILL BE DRIVEING HIM HOME. MARCO SOTO WILL TEACHA ND DELIVER TO THE HOSPITAL TODAY AND THEY WILL DISCHARGE HOME TO THEIR FRIENDS HOME WHILE HE RECOVERS IMM SERVED AND EXPLAINED AND MARIA ALSO SIGNED. I HAVE GIVEN THEM MY CARD IF THERE ARE ANY PROBLEMS CM TO FOLLOW AND ASSIST NEEDED Airplane Flight Attendant Supervisor: Sweta Mina DCPIA - Discharge Planning Initial Assessment Updated by [id number]: Sweta Mina on 07/09/20 3:28 pm * Is the patient Alert and Oriented? Yes Coverage Notice Reviewer: [id number] Mina Notice Issued Date-Time: 07/09/2020 15:32 Notice Type: IM Discharge Notice Notice Delivered To: Patient Relationship to Patient: Broomcorn Press Feeder Name: Delivery Method: HAND - Hand Delivered Rima Days: Prior Verbal Notification: Recipient Understood Notice: Yes Recipient Signature: Yes Med Rec Note Co-signed by Attending: Coverage Notice Comment: Reviewer: [id number] Jillian Mina Notice Issued Date-Time: 07/09/2020 15:32 Notice Type: Patient Choice Letter Notice Delivered To: Patient Relationship to Patient: Broomcorn Press Feeder Name: Delivery Method: HAND - Hand Delivered Rima Days: Prior Verbal Notification: Recipient Understood Notice: Yes Recipient Signature: Yes Med Rec Note Co-signed by Attending: Coverage Notice Comment: Last DP export: 07/10/20 6:25 a Patient Name: CONSTANTIN HARTMAN Page [phone] at 0845 All edits/amendments must be made on the electronic document DICTATION DATE: 07/10/20843 SUPERVISOR GRAPHITE: ZAINAB 07/10/2044 RPT#: [id number] DC DATE:07/09/20 STATUS: DIS IN [facility] [address] [place] [address] END OF REPORT
== END 2020-07-09 17:21 | disposition home health service (06) | DRG 602 ==
LOC: D.ER 16:09 → D.MS 17:49 → D.EDHOLD 17:49 → D.MS 19:51
PROVIDERS: Family Medicine; Family Medicine Adult Medicine; ADMIT Family Medicine; ATTEND Family Medicine
PROC: 0S9C3ZZ Drainage of Right Knee Joint, Percutaneous Approach (ICD-10-PCS; principal; 2020-07-01)
DX: L03.115 Cellulitis of right lower limb (principal); J18.9 Pneumonia, unspecified organism; S83.206A Unspecified tear of unspecified meniscus, current injury, right knee, initial encounter; X58.XXXA Exposure to other specified factors, initial encounter; I95.9 Hypotension, unspecified; M06.9 Rheumatoid arthritis, unspecified

== ENCOUNTER → 2020-07-13 10:14 | Outpatient (CLI) | payer MEDICARE, BC ==
[2020-07-02 14:09] VITALS: BMI 32.2
[~2020-07-13 10:14] MED LIST: AMBIEN10 MG PO; ASPIRIN81 MG PO; FLOMAX0.4 MG PO; FOLIC ACID1 MG PO; KLONOPIN1 MG PO; MELATONIN 3 MG1 TAB PO; NEURONTIN 300300 MG PO; TREXALL5 MG PO; VANCOMYCIN 1 GM/1 G1 IV; XELJANZ5 MG PO; Zosyn 3.375 GM/D5W 5 IV
[2020-07-13 10:33] LABS: BASOPHILS 0.3 % (0-2); EOSINOPHILS 0.8 % (0-7); HEMATOCRIT 43.3 % (42.0-54.0); IMMATURE GRANULOCYTES 3.7 % (0-5); LYMPHOCYTES 14.9 % (15-50); MCH 30.7 pg (26.0-34.0); MCHC 32.3 g/dL (31.0-37.0); MEAN PLATELET VOLUME 9.8 fL (7.4-10.4); MONOCYTES 6.8 % (2-11); NEUTROPHILS 73.5 % (40-80); RBC 4.56 10x6/uL (4.20-6.10); WBC 9.3 10x3/uL (4.8-10.8)
[2020-07-13 10:36] LABS: PLATELET COUNT 491 10x3/uL (130-400)
[2020-07-13 13:07] LABS: ERYTHROCYTE SEDIMENTATION RATE 51 mm/hr (0-20)
== END | disposition home or self-care (01) ==
LOC: D.LABREF 10:14
PROVIDERS: ATTEND Nurse Practitioner Family
DX: B99.9 Unspecified infectious disease (principal)